=== PATIENT | female | born 1980 | race Caucasian/White ===

== ENCOUNTER → 2016-08-14 | Outpatient (CLI) | payer OTHER ==
[2016-08-14 14:57] LABS: URINE APPEARANCE CLEAR (CLEAR); URINE BILIRUBIN NEG (NEG); URINE COLOR YELLOW; URINE NITRITE NEG (NEG); URINE PH 6.5 (4.5-7.5); URINE SPECIFIC GRAVITY 1.021 (1.000-1.030); UROBILINOGEN NEG (NEG)
[2016-08-14 15:02] LABS: MANUAL MICROSCOPIC REQUIRED? NO; REVIEW REQ? NO
[2016-08-14 15:10] LABS: URINE PROTIEN/CREAT RATIO 0.1 (0-0.2); URINE TOTAL PROTEIN 8.9 mg/dl (0-11.9)
== END | disposition home or self-care (01) ==
LOC: C.LAB1850 13:42
PROVIDERS: ATTEND Internal Medicine Nephrology
DX: R31.9 Hematuria, unspecified (principal)

== ENCOUNTER → 2016-09-15 | Outpatient (CLI) | payer OTHER ==
[2016-09-15 12:50] LABS: URINE APPEARANCE CLEAR (CLEAR); URINE BILIRUBIN NEG (NEG); URINE COLOR DK YELLOW; URINE NITRITE NEG (NEG); URINE PH 6.5 (4.5-7.5); URINE SPECIFIC GRAVITY 1.023 (1.000-1.030); UROBILINOGEN NEG (NEG); ZZUR CULT IF INDIC CLEAN CATCH YES
[2016-09-15 12:58] LABS: BLOOD UREA NITROGEN 10 mg/dl (7-18); BUN/CREATININE RATIO 13.1 (10-20); CALCIUM 8.8 mg/dl (8.5-10.1); CARBON DIOXIDE 23 mmol/L (21-32); CHLORIDE 112 mmol/L (98-107); CREATININE 0.76 mg/dl (0.60-1.20); GLUCOSE 98 mg/dl (70-99); PHOSPHORUS 2.3 mg/dl (2.5-4.9); POTASSIUM 3.7 mmol/L (3.5-5.1); SODIUM 141 mmol/L (136-145)
[2016-09-15 13:05] LABS: MANUAL MICROSCOPIC REQUIRED? NO; REVIEW REQ? NO
== END | disposition home or self-care (01) ==
LOC: C.LAB1850 10:41
PROVIDERS: ATTEND Internal Medicine Nephrology
DX: S30.1XXA Contusion of abdominal wall, initial encounter (principal); R31.9 Hematuria, unspecified; X58.XXXA Exposure to other specified factors, initial encounter